=== PATIENT | female | born 1970 | race Caucasian/White ===

== ENCOUNTER 2017-02-10 09:57 | Emergency (ER) | payer OTHER ==
[~2017-02-10] VITALS: Ht 160 cm; Wt 91.3 kg
[2017-02-10 11:02] VITALS: BP 144/67
== END 2017-02-10 11:02 | disposition home or self-care (01) ==
LOC: ED 09:57
DX: G44.209 Tension-type headache, unspecified, not intractable (principal); I10 Essential (primary) hypertension